=== PATIENT | female | born 1985 | race Caucasian/White ===

== ENCOUNTER 2017-07-20 05:23 | Inpatient (IN) | payer OTHER ==
[2017-07-20] VITALS (176 sets, daily range): BP systolic 86–142; BP diastolic 41–103; PULSE 66–179; RESP 18; TEMP 97.8–98.6
[~2017-07-20] VITALS: Ht 160 cm; Wt 90.3 kg
[2017-07-20 06:18] LABS: BACTERIA, URINE FEW /hpf; BLOOD, URINE NEG (NEG); COMMENT (UR) CULT NOT INDICATED; CULTURE IF INDICATED CULT NOT INDICATED; GLUCOSE,URINE NEG (NEG); KETONE, URINE NEG (NEG); MUCUS URINE FEW /lpf (OCC); NITRITE,URINE NEG (NEG); SQUAMOUS EPITHELIAL CELL URINE 10 /hpf (0-5); URINE COLOR YELLOW (YELLW/STRAW)
[2017-07-20 06:19] LABS: AUTOMATED NEUTROPHIL # 6.8 TH/MM3 (1.8-7.7); BASOPHIL % 0.4 % (0.0-2.0); EOSINOPHIL # 0.1 TH/MM3 (0-0.4); HEMATOCRIT 33.5 % (35.0-46.0); HEMO FLAGS DIFF FINAL; LYMPHOCYTE # 2.5 TH/MM3 (1.0-4.8); MEAN CELL VOLUME 91.8 FL (80.0-100.0); MEAN CORPUSCULAR HEMOGLOBIN 31.7 PG (27.0-34.0); MEAN CORPUSCULAR HGB CONC 34.5 % (32.0-36.0); MONO % 5.8 % (0.0-8.0); NEUT % 67.8 % (16.0-70.0); PLATELET COUNT 275 TH/MM3 (150-450); RED BLOOD COUNT 3.65 MIL/MM3 (4.00-5.30); RED CELL DISTRIBUTION WIDTH 13.5 % (11.6-17.2); WHITE BLOOD COUNT 10.1 TH/MM3 (4.0-11.0)
[2017-07-20] MEDS ORDERED: FAMO1TAB37 PO (06:29)
[2017-07-20] MEDS ORDERED: PREN29TA PO (06:29)
[2017-07-20] MEDS ORDERED: TUMS500C CHEW (06:29)
[2017-07-20] MEDS ORDERED: ZOLPIDEM TARTRATE 10 MG TAB PO PRN (07:15)
[2017-07-20] MEDS ORDERED: ONDANSETRON HCL 4 MG/2 ML VIAL IV PUSH PRN (07:15)
[2017-07-20] MEDS ORDERED: LACTATED RINGER'S 1000 ML BOLUS IV PRN (07:15)
[2017-07-20] MEDS ORDERED: LIDOCAINE HCL 1% 50 ML VIAL I-DERMAL PRN (07:15)
[2017-07-20] MEDS ORDERED: NS 500 ML BOLUS IV PRN (07:15)
[2017-07-20] MEDS ORDERED: OXYTOCIN 30 UNITS/NS 500ML PREMIX IV SCH (07:15)
[2017-07-20] MEDS ORDERED: MINERAL OIL 10 ML VIAL TOPICAL PRN (07:15)
[2017-07-20] MEDS ORDERED: OXYTOCIN 30 UNITS 500ML PREMIX IV ONE (07:15)
[2017-07-20] MEDS ORDERED: CITRIC ACID-SODIUM CITRATE LIQ 30 ML UDC PO SCH (07:15)
[2017-07-20] MEDS ORDERED: LIDOCAINE HCL 1% 50 ML VIAL INFIL PRN (07:15)
[2017-07-20] MEDS ORDERED: NS 1000 ML IV PRN (07:15)
[2017-07-20] MEDS: LACTATED RINGER'S 1000 ML IV SCH ×2 (07:41→10:10)
[2017-07-20] MEDS ORDERED: fentaNYL 2MCG-BUPIV 0.125% INJ 100 ML ONE ×2 (09:16→17:16)
[2017-07-20] MEDS ORDERED: ePHEDrine/NS 25 MG/5 ML SYR ONE (09:56)
[2017-07-20] MEDS ORDERED: DIPHTH/TETANUS/ACEL PERTUSSIS (BOOSTER) 0.5 ML VIAL/PFS IM ONE (16:00)
[2017-07-20] MEDS ORDERED: MEASLES, MUMPS, RUBELLA VACCINE 0.5 ML VIAL SQ ONE (16:00)
[2017-07-20] MEDS ORDERED: LIDOCAINE HCL 1% 50 ML VIAL ONE (17:26)
--- NOTE | 2017-07-20 19:07 | PD.OB.DELI ---
Weeks gestation: 40 Gest age assessed date: Jul 20, 2017 Gest age assessed time: 06:48 Pt started active labor?: No Medical induction of labor?: Yes Medical induction start date: Jul 20, 2017 Medical induction start time: 06:48 Artificial rupture of membrane: Yes Artificial ROM date: Jul 20, 2017 Artifical ROM time: 06:48 Anesthesia: Epidural Episiotomy: None Vaginal Delivery: Normal Presentation: Occiput anterior Nuchal Cord: None Delayed cord clamping (45 sec): No : Male, Single Delivery date: Jul 20, 2017 Delivery time: 18:41 One Minute : 9 Five Minute : 9 Weight: 7-2 Placenta: Spontaneous delivery Laceration: Vaginal laceration, 1 deg Repair: Chromic interrupted, Chromic running Estimated blood loss: 300 Oliva Barker MD Jul 20, 2017 19:07
[2017-07-20] MEDS ORDERED: ONDANSETRON ODT 4 MG TAB PO PRN (19:15)
[2017-07-20] MEDS ORDERED: DOCUSATE SODIUM 50 MG/SENNA 8.6 MG TAB PO PRN (19:15)
[2017-07-20] MEDS ORDERED: ZOLPIDEM TARTRATE 5 MG TAB PO PRN (19:15)
[2017-07-20] MEDS ORDERED: BENZOCAINE 20% TOPICAL SPRAY 60 ML CAN TOPICAL PRN (19:15)
[2017-07-20] MEDS ORDERED: WITCH HAZEL 50%/GLYCERIN 12.5% 40 PAD JAR TOPICAL PRN (19:15)
[2017-07-20] MEDS ORDERED: ALUMINUM/MAGNESIUM/SIMETH 30 ML CUP PO PRN (19:15)
[2017-07-20] MEDS ORDERED: ACETAMINOPHEN 325 MG TAB PO PRN (19:15)
[2017-07-20] MEDS ORDERED: OXYTOCIN 30 UNITS-500ML PREMIX 500 ML IV SCH (19:15)
[2017-07-20] MEDS ORDERED: SODIUM CHLORIDE 0.9% FLUSH 10 ML FLUSH IV FLUSH PRN (19:15)
[2017-07-20] MEDS ORDERED: NO SYSTEM NARCOTICS PRN (19:30)
[2017-07-20] MEDS ORDERED: ePHEDrine/NS 25 MG/5 ML SYR IV PUSH PRN (19:30)
[2017-07-20] MEDS ORDERED: DO NOT ADMINISTER ANTICOAGULANTS PRN (19:30)
[2017-07-20] MEDS ORDERED: fentaNYL 2MCG-BUPIV 0.125% 100 ML EPIDURAL SCH (19:30)
[2017-07-20] MEDS: SODIUM CHLORIDE 0.9% FLUSH 10 ML FLUSH IV FLUSH SCH (20:11)
[2017-07-20] MEDS: IBUPROFEN 800 MG TAB PO PRN (20:14)
[2017-07-21] MEDS: IBUPROFEN 800 MG TAB PO PRN ×3 (04:14→20:11)
--- NOTE | 2017-07-21 10:55 | HHI.OB ---
Subjective Post Day: 1 Remarks Pt doing well, good pain control, going well Objective Vitals/I&O Vital Signs Date Time Temp Pulse Resp B/P (MAP) Pulse Ox O2 Delivery O2 Flow Rate FiO2 07/20/17 21:55 98.0 07/20/17 21:55 18 134/71 (92) 07/20/17 20:02 92 119/73 (88) 07/20/17 19:45 93 131/78 (95) 07/20/17 19:31 92 130/80 (97) 07/20/17 19:25 18 07/20/17 19:25 98.1 07/20/17 19:15 99 115/82 (93) 07/20/17 19:10 18 07/20/17 18:55 18 07/20/17 18:20 106 07/20/17 18:15 102 123/63 (83) 07/20/17 18:15 102 07/20/17 18:10 100 07/20/17 18:05 94 07/20/17 18:00 90 136/83 (100) 07/20/17 18:00 103 07/20/17 18:00 18 07/20/17 17:55 108 07/20/17 17:50 102 07/20/17 17:46 101 139/71 (93) 07/20/17 17:45 105 07/20/17 17:40 105 07/20/17 17:35 102 07/20/17 17:30 90 07/20/17 17:30 102 18 137/63 (87) 07/20/17 17:25 98 07/20/17 17:20 91 07/20/17 17:15 96 132/70 (90) 07/20/17 17:15 110 07/20/17 17:10 101 07/20/17 17:05 107 07/20/17 17:01 93 142/78 (99) 07/20/17 17:00 18 07/20/17 17:00 103 07/20/17 16:55 91 07/20/17 16:50 89 07/20/17 16:46 87 112/74 (87) 07/20/17 16:45 86 07/20/17 16:40 93 07/20/17 16:35 92 07/20/17 16:30 78 131/71 (91) 07/20/17 16:30 86 07/20/17 16:30 18 07/20/17 16:25 80 07/20/17 16:20 89 07/20/17 16:15 80 121/74 (90) 07/20/17 16:15 93 07/20/17 16:10 77 07/20/17 16:05 75 07/20/17 16:00 82 07/20/17 16:00 98.5 07/20/17 16:00 85 119/63 (81) 07/20/17 15:55 77 07/20/17 15:52 18 07/20/17 15:50 94 07/20/17 15:46 89 129/63 (85) 07/20/17 15:45 95 07/20/17 15:40 92 07/20/17 15:35 79 07/20/17 15:31 85 131/55 (80) 07/20/17 15:30 18 07/20/17 15:30 96 07/20/17 15:25 89 07/20/17 15:20 85 07/20/17 15:16 74 131/73 (92) 07/20/17 15:15 80 07/20/17 15:10 81 07/20/17 15:05 84 07/20/17 15:01 92 113/48 (69) 07/20/17 15:00 88 07/20/17 15:00 18 07/20/17 14:55 81 07/20/17 14:50 94 07/20/17 14:46 92 128/76 (93) 07/20/17 14:45 88 07/20/17 14:40 105 07/20/17 14:35 94 07/20/17 14:30 88 138/69 (92) 07/20/17 14:30 85 07/20/17 14:30 18 07/20/17 14:25 86 07/20/17 14:20 101 07/20/17 14:15 103 125/67 (86) 07/20/17 14:15 84 07/20/17 14:10 106 07/20/17 14:05 100 07/20/17 14:00 110 18 124/78 (93) 07/20/17 14:00 98 07/20/17 14:00 98.6 07/20/17 13:55 87 07/20/17 13:50 92 07/20/17 13:46 94 102/56 (71) 07/20/17 13:45 69 07/20/17 13:40 68 07/20/17 13:35 72 07/20/17 13:31 67 125/54 (77) 07/20/17 13:30 18 07/20/17 13:30 89 07/20/17 13:25 93 07/20/17 13:20 82 130/57 (81) 07/20/17 13:20 83 07/20/17 13:16 67 115/41 (65) 07/20/17 13:15 81 07/20/17 13:10 76 07/20/17 13:05 75 07/20/17 13:01 77 125/51 (75) 07/20/17 13:00 95 07/20/17 13:00 18 07/20/17 12:55 92 07/20/17 12:50 89 07/20/17 12:45 96 07/20/17 12:45 86 136/70 (92) 07/20/17 12:40 87 07/20/17 12:35 74 07/20/17 12:30 18 07/20/17 12:30 81 124/61 (82) 07/20/17 12:30 77 07/20/17 12:25 85 07/20/17 12:20 89 07/20/17 12:16 92 114/69 (84) 07/20/17 12:15 84 07/20/17 12:15 18 07/20/17 12:10 78 07/20/17 12:05 92 07/20/17 12:01 71 113/63 (80) 07/20/17 12:00 18 07/20/17 12:00 80 07/20/17 12:00 98.0 07/20/17 11:55 66 07/20/17 11:50 71 07/20/17 11:45 77 18 117/65 (82) 07/20/17 11:45 81 07/20/17 11:40 79 07/20/17 11:35 77 07/20/17 11:31 75 115/45 (68) 07/20/17 11:30 18 07/20/17 11:30 79 12/1/17 11:25 85 07/20/17 11:20 97 07/20/17 11:16 90 112/47 (68) 07/20/17 11:15 18 07/20/17 11:15 83 07/20/17 11:10 83 07/20/17 11:05 73 07/20/17 11:00 75 120/64 (82) 07/20/17 11:00 98.0 07/20/17 11:00 85 07/20/17 10:57 18 07/20/17 10:55 98 Objective Remarks GENERAL: Well-nourished, well-developed patient. CARDIOVASCULAR: Regular rate and rhythm without murmurs, gallops, or rubs. RESPIRATORY: Breath sounds equal bilaterally. No accessory muscle use. ABDOMEN/GI: Abdomen soft, non-tender. Fundus: Firm, non-tender at umbilicus. GENITOURINARY: Light to moderate bleeding. EXTREMITIES: No cyanosis or edema, non-tender, without signs of DVT. Medications and IVs Current Medications Medications (Trade) Dose Ordered Sig/Sofia Route Start Time Stop Time Status Last Admin (NS Flush) 2 ml BID IV FLUSH 07/20/17 21:00 07/20/17 20:11 (NS Flush) 2 ml UNSCH PRN IV FLUSH 07/20/17 19:15 (Tylenol) 650 mg Q4H PRN PO 07/20/17 19:15 (Motrin) 800 mg Q8H PRN PO 07/20/17 19:15 07/21/17 04:14 (Americaine 20% Top Spr) 1 spray Q4H PRN TOPICAL 07/20/17 19:15 07/20/17 22:23 (Tucks Pads) 1 applic QID PRN TOPICAL 07/20/17 19:15 07/20/17 22:23 (Vera-Colace) 2 tab Q12H PRN PO 07/20/17 19:15 (Ambien) 5 mg HS PRN PO 07/20/17 19:15 (Mag-Al Plus Susp Liq) 15 ml Q8H PRN PO 07/20/17 19:15 (Zofran Odt) 4 mg Q6H PRN PO 07/20/17 19:15 Miscellaneous Information No systemic narcotics to be given except... UNSCH PRN .XX 07/20/17 19:30 07/21/17 19:29 Miscellaneous Information DO NOT ADMINISTER ANY ANTICOAGUL... UNSCH PRN .XX 07/20/17 19:30 07/21/17 19:29 Fentanyl/ Bupivacaine HCl 100 ml @ 0 mls/hr TITRATE EPIDURAL 07/20/17 19:30 07/20/17 19:47 (ePHEDrine/NS 25 MG/5 ML SYR) 10 mg UNSCH PRN IV PUSH 07/20/17 19:30 07/21/17 19:29 Assessment/Plan Assessment and Plan PPD # 1 s/p doing well, routine care, plan for dc in am Oliva Barker MD Jul 21, 2017 10:55
[2017-07-21] MEDS: SODIUM CHLORIDE 0.9% FLUSH 10 ML FLUSH IV FLUSH SCH (19:34)
[2017-07-22] MEDS: IBUPROFEN 800 MG TAB PO PRN (05:14)
--- NOTE | 2017-07-22 10:07 | HHI.DCPOC ---
Discharge Care Plan Report Symptoms to Your Doctor -Temperature above 100.5 degrees -Redness, of incision or excessive or foul smelling drainage -Unusual pain or calf pain -Increased vaginal bleeding -Painful or difficulty urinating -Feelings of extreme sadness or anxiety after 2 weeks Goals to Promote Your Health * To prevent worsening of your condition and complications * To maintain your health at the optimal level Directions to Meet Your Goals Take your medications as prescribed Follow your dietary instruction Follow activity as directed Ensure plenty of rest for recovery Drink fluids for hydration Keep your appointments as scheduled Take your immunizations and boosters as scheduled If your symptoms worsen call your PCP, if no PCP go to Urgent Care Center or Emergency Room Smoking is Dangerous to Your Health. Avoid second hand smoke Call the 24-hour crisis hotline for domestic abuse at Oliva Barker MD Jul 22, 2017 10:07
--- NOTE | 2017-07-22 10:08 | HHI.DS ---
Admission Date Jul 20, 2017 at 05:23 Discharge Date: Jul 22, 2017 Admitting Diagnosis IUP at 40 + wks for induction Diagnosis: Delivery Date: Jul 20, 2017 Vaginal Delivery: Normal : Male, Single Pt Condition on Discharge: Good Discharge Disposition: Discharge Home Discharge Instructions Diet Instructions: As Tolerated, No Restrictions Activities You Can Perform: Pelvic Rest Oliva Barker MD Jul 22, 2017 10:08
== END 2017-07-22 11:19 | disposition home or self-care (01) | DRG 775 ==
LOC: H2EB 05:23 → H1EA 21:01
PROVIDERS: ADMIT Obstetrics & Gynecology; ATTEND Obstetrics & Gynecology
PROC: 0HQ9XZZ Repair Perineum Skin, External Approach (ICD-10-PCS; principal; 2017-07-20)
PROC: 10E0XZZ Delivery of Products of Conception, External Approach (ICD-10-PCS; 2017-07-20)
PROC: 10907ZC Drainage of Amniotic Fluid, Therapeutic from Products of Conception, Via Natural or Artificial Opening (ICD-10-PCS; 2017-07-20)
PROC: 00HU33Z Insertion of Infusion Device into Spinal Canal, Percutaneous Approach (ICD-10-PCS; 2017-07-20)
PROC: 3E0R3BZ Introduction of Anesthetic Agent into Spinal Canal, Percutaneous Approach (ICD-10-PCS; 2017-07-20)
DX: O70.0 First degree perineal laceration during delivery (principal); Z37.0 Single live birth; Z3A.40 40 weeks gestation of pregnancy
CPT/HCPCS: 59025; 80307; 81001; 85025; 86900; 86901; J2590; J7120